=== PATIENT | female | born 1940 | race Caucasian/White ===

== ENCOUNTER 2018-11-02 12:18 | Day surgery (SDC) | payer OTHER ==
--- NOTE | 2018-10-28 12:30 | RAD REPORT ---
EXAM DESCRIPTION: Ugo Maxwell (2 Views)10/28/2018 12:23 pm CLINICAL HISTORY: Preop for eye surgery COMPARISON: None FINDINGS: Lungs are moderately hyperaerated The lungs appear clear of acute infiltrate. The heart is normal size IMPRESSION: Hyperaerated lungs without visualization of an acute abnormality
[2018-10-28 13:35] LABS: Absolute Lymphocytes (CBC) 1.4 K/uL (0.7-4.9); Basophils % 0.5 % (0-1.3); Eosinophils % 1.7 % (0-4.4); Hematocrit 38.5 % (36.0-45.0); Lymphocytes % 21.3 % (15.3-44.8); MPV 9.7 fL (7.6-11.3); Monocytes % 6.1 % (3.3-12.3)
[2018-10-28 13:46] LABS: Potassium 3.8 mmol/L (3.5-5.1)
--- NOTE | 2018-10-29 07:38 | EKG ---
Test Date: 2018-10-28 Test Time: 12:35:34 [place]: ELSA MEASUREMENT RESULTS: Intervals: Rate: 60 SD: 114 QRSD: 78 QT: 434 QTc: 434 [place]: P: 49 SD: 114 QRS: 47 T: 64 INTERPRETIVE STATEMENTS: Normal sinus rhythm Normal ECG No previous ECG available for comparison Electronically Signed On 10-29-18 07:36:06 CDT by Valdo Wong
--- OUTSIDE RECORDS SUMMARY | 2018-11-02 12:28 | XMS REPORT | Clinical Summary ---
:1940 Author Organization [facility] Address [address] [place] [address] Care Team Providers Name Role Phone Cong Claudio MD Primary Care Provider Allergies Active Allergy Reactions Severity Noted Date Comments Penicillins 01/24/2015 Rosacea flare up Medications Medication Sig Dispensed Refills Start End Status Date Date estrogens, conjugated, Take 1.25 mg by 0 Active (PREMARIN) 1.25 MG mouth daily. tablet aspirin 81 MG EC Take 81 mg by 0 Active tablet mouth daily. RESTASIS 0.05 % Place 1 drop 0 Active ophthalmic emulsion into both eyes 7 daily . metroNIDAZOLE Apply 1 0 Active (METROCREAM) 0.75 % application 7 cream topically as needed . cetirizine-pseudoephed Take 1 tablet 0 Active rine (ZYRTEC-D) 5 by mouth 2 9 020 mg-120 mg per (two) times tabletIndications: daily. Seasonal allergic rhinitis due to pollen levothyroxine Take 1 tablet 90 tablet 0 Active (SYNTHROID, (75 mcg total) 9 LEVOTHROID) 75 MCG by mouth every tabletIndications: morning ON AN Hypothyroidism, EMPTY STOMACH. unspecified type, Encounter for long-term current use of medication methylPREDNISolone Take 1 tablet 21 tablet 0 Active (MEDROL DOSEPACK) 4 mg (4 mg total) by 9 020 tabletIndications: mouth daily Seasonal allergic follow package rhinitis due to pollen directions. cetirizine-pseudoephed Take 1 tablet 0 Active rine (ZYRTEC-D) 5 by mouth 2 9 020 mg-120 mg per (two) times tabletIndications: daily. Seasonal allergic rhinitis due to pollen levothyroxine TAKE 1 TABLET 30 tablet 2 Active (SYNTHROID, BY MOUTH EVERY 9 LEVOTHROID) 75 MCG MORNING ON AN tabletIndications: EMPTY STOMACH Hypothyroidism, unspecified type, Encounter for long-term current use of medication cetirizine-pseudoephed Take 1 tablet 0 rine (ZYRTEC-D) 5 by mouth 2 8 019 mg-120 mg per tablet (two) times daily. levothyroxine TAKE 1 30 tablet 2 Discontinued (SYNTHROID, TABLET(75 MCG) 8 018 LEVOTHROID) 75 MCG BY MOUTH EVERY tabletIndications: MORNING ON AN Hypothyroidism, EMPTY STOMACH unspecified type, Encounter for long-term current use of medication levothyroxine Take 1 tablet 90 tablet 0 Discontinued (SYNTHROID, (75 mcg total) 8 019 LEVOTHROID) 75 MCG by mouth Every tabletIndications: morning on an Hypothyroidism, empty stomach. unspecified type, Encounter for long-term current use of medication levothyroxine TAKE 1 TABLET 180 tablet 0 Discontinued (SYNTHROID, BY MOUTH EVERY 8 019 LEVOTHROID) 75 MCG MORNING ON AN tabletIndications: EMPTY Hypothyroidism, STOMACH(PATIENT unspecified type, MUST COME IN Encounter for FOR FASTING LAB long-term current use AND APPT BEFORE of medication REFILL RUNS OUT) azithromycin Take 2 tablets 6 tablet 0 (ZITHROMAX Z-ALONDRA) 250 (500 mg) on 9 019 MG tabletIndications: Day 1, Seasonal allergic followed by 1 rhinitis due to pollen tablet (250 mg) once daily on Days 2 through 5.. levothyroxine Take 1 tablet 30 tablet 0 Discontinued (SYNTHROID, (75 mcg total) 9 019 LEVOTHROID) 75 MCG by mouth Every tabletIndications: morning on an Hypothyroidism, empty stomach. unspecified type, Encounter for long-term current use of medication Hospital, Clinic, or Other Ordered Dose Route Frequency Start Date End Date Status Facility Administered Medication triamcinolone acetonide 40 mg IM Once 06/02/2018 06/02/2018 Ended (KENALOG-40) injection 40 mgIndications: Seasonal allergic rhinitis due to pollen triamcinolone acetonide 40 mg IM Once 07/15/2018 07/15/2018 Ended (KENALOG-40) injection 40 mgIndications: Seasonal allergic rhinitis due to pollen Active Problems Problem Noted Date Encounter for long-term current use of medication 01/09/2016 Hypercholesteremia 01/09/2016 Hypothyroid 01/09/2016 Vitamin D deficiency 01/09/2016 S/P hip replacement, right 09/27/2015 Rosacea 09/27/2015 Encounters Date Type Specialty Care Team Description 09/03/2018 Refill Family Medicine Trish Ulloa, Hypothyroidism, unspecified type; [employer] Encounter for long-term current use of medication 07/15/2018 Office Visit Family Medicine Cong Claudio, Seasonal allergic MD rhinitis due to pollen (Primary Dx) 07/13/2018 Refill Family Trish Gonzalez, Hypothyroidism, unspecified type; [employer] Encounter for long-term current use of medication 07/11/2018 Refill Family Medicine Cong Claudio, Hypothyroidism, unspecified type; MD Encounter for long-term current use of medication 06/02/2018 Office Visit Family Cong Arreola, Hypothyroidism, unspecified type (Primary Dx); MD Encounter for long-term current use of medication; Hypercholesteremia; Seasonal allergic rhinitis due to pollen 12/16/2017 Refill Family Cong Arreola, Hypothyroidism, unspecified type; MD Encounter for long-term current use of medication 11/10/2017 Refill Family Cong Arreola, Hypothyroidism, unspecified type; MD Encounter for long-term current use of medication after 11/01/2017 Immunizations Name Dates Previously Given Next Due IPV 12/27/2014 Td 08/11/2015 Family History Relation Name Status Comments Father Mother Social History Tobacco Use Types Packs/Day Years Used Date Never Smoker Smokeless Tobacco: Never Used Alcohol Use Drinks/Week oz/Week Comments Yes 1 Glasses of wine 0.6 light Sex Assigned at Date Recorded Not on file Job Start Date Occupation Industry Not on file Not on file Not on file Travel History Travel Start Travel End No recent travel history available. Last Filed Vital Signs Vital Sign Reading Time Taken Blood Pressure 126/74 07/15/2018 11:55 AM CDT Pulse 84 07/15/2018 11:55 AM CDT Temperature 36.6 C (97.9 F) 07/15/2018 11:55 AM CDT Respiratory Rate 16 07/15/2018 11:55 AM CDT Oxygen Saturation 96% 07/15/2018 11:55 AM CDT Inhaled Oxygen Concentration - - Weight 47.8 kg (105 lb 6.4 oz) 07/15/2018 11:55 AM CDT Height 162.6 cm (5' 4") 07/15/2018 11:55 AM CDT Body Mass Index 18.09 07/15/2018 11:55 AM CDT Plan of Treatment Not on file Results Not on fileafter 11/01/2017 Insurance Payer Benefit Plan / Group Subscriber ID Type Phone Address MEDICARE MEDICARE A B xxxxxxxxxxx Medicare
[2018-11-02] MEDS ORDERED: BALANCED SALT IRRIG PLAIN 500 ML BTL IRR ONE ×2 (12:54→13:55)
[2018-11-02] MEDS ORDERED: NS 0.9% VIAL 0 ML ONE (12:54)
[2018-11-02] MEDS ORDERED: EPINEPHRINE/PF 1 MG/ML AMP ONE ×2 (12:54→13:55)
[2018-11-02] MEDS ORDERED: BUPIVACAINE 0.25% PF 10 ML VIAL ONE (13:08)
[2018-11-02] MEDS ORDERED: TETRACAINE HCL 0.5% 4ML OPTH ONE (13:08)
[2018-11-02] MEDS ORDERED: LIDOCAINE 2% MPF 5 ML VIAL ONE ×2 (13:08→14:12)
[2018-11-02] MEDS ORDERED: NA CHLORIDE 0.9% 500 ML ONE (13:09)
[2018-11-02] MEDS ORDERED: DUOVISC 1 KIT OPTH ONE (13:37)
[2018-11-02] MEDS: CYCLOPENTOLATE 1% OPTH 2 ML ONE ×3 (13:50→14:00)
[2018-11-02] MEDS: PHENYLEPHRINE 10% OPTH 5ML ONE ×3 (13:50→14:00)
[2018-11-02] MEDS ORDERED: NS 0.9% VIAL 10 ML ONE (13:55)
[2018-11-02] MEDS ORDERED: FENTANYL CITR 100 MCG/2 ML ONE (14:12)
[2018-11-02] MEDS ORDERED: PROPOFOL 200 MG/20 ML VIAL IV ONE (14:12)
[2018-11-02] MEDS ORDERED: MIDAZOLAM HCL 2 MG/2 ML INJ ONE (14:13)
[2018-11-02] MEDS: MOXIFLOXACIN HCL 10 DROPS/ML **OR USE OPTH ONE ×2 (14:55→15:11)
[2018-11-02] MEDS ORDERED: dexAMETHasone 10 MG/ML VIAL ONE (15:07)
[2018-11-02] MEDS ORDERED: GLYCOPYRROLATE 0.2 MG/ML SYR ONE (15:14)
--- NOTE | 2018-11-02 15:18 | P.BOP ---
Preoperative diagnosis: Nuclear sclerotic and posterior subcapsular cataract OS Postoperative diagnosis: Same Primary procedure: Phacoemulsification with IOL OS Estimated blood loss: None Anesthesia: General Complications: None Implants: ZCB00 +23.5 Transferred to: Recovery Room Condition: Good
[2018-11-02] MEDS ORDERED: MORPHINE 4 MG/ML SYR ONE (15:54)
--- NOTE | 2018-11-03 01:45 | OP ---
Date of Procedure: 11/02/2018 Surgeon: Yissel Watson MD Anesthesiologist: Addison Elder CRNA and Cong Sharma MD Preoperative Diagnosis: Nuclear sclerotic cataract and posterior subcapsular cataract, left eye. Operation Performed: Phacoemulsification with intraocular lens implant, left eye. Anesthesia: General. Complications: None. Description Of Procedure: In the operating room the patient was prepped and draped in the usual ster ile fashion for ophthalmic surgery. A lid speculum was placed in the left eye. Two paracentesis sit es were made superiorly and inferiorly in the limbal cornea. Viscoat was placed in the anterior leatha johann and a crescent blade was used to make a corneal groove and tunnel, and a keratome was used to ent er the anterior chamber. Provisc was placed in the anterior chamber and a 360 degree capsulotomy was performed with a cystitome. The lens was hydrodissected with BSS and rotated freely. The lens was removed with a stop and chop technique. 17.85 phaco CDE was used to remove the lens. Residual germaine x was removed with the irrigation and aspiration. Provisc was placed in the capsular bag. A ZCB00 + 23.5 lens was placed in the capsular bag without complications. Irrigation and aspiration were used to remove residual viscoelastic. The paracentesis sites were hydrated with BSS. The wound and parac entesis sites were inspected and found to be watertight. Vigamox 0.07 cc was placed intracamerally a t the end of the procedure. The eye was irrigated with balanced salt solution. The eye was patched with a soft cotton patch and Jose metal shield. The patient was returned to day surgery in good condition. Comments: The patient was performed under general anesthesia due to extreme anxiety. Discharge Instructions: Ms. Tinsley is discharged to home in good condition and is to follow up with Jose Watson in the morning. SANTIAGO/LACEY Voice ID: [id number] Report ID: [id number]
== END 2018-11-02 16:52 | disposition home or self-care (01) ==
LOC: OR 12:18
PROVIDERS: ATTEND Ophthalmology Retina Specialist
PROC: 08RK3JZ Replacement of Left Lens with Synthetic Substitute, Percutaneous Approach (ICD-10-PCS; principal; 2018-11-02 13:15)
DX: H25.12 Age-related nuclear cataract, left eye (principal); H25.042 Posterior subcapsular polar age-related cataract, left eye; E07.9 Disorder of thyroid, unspecified; Z88.0 Allergy status to penicillin
CPT/HCPCS: 93005; 85025; 80048; 36415; 71046; 66984; J2704; J0171; J3010; J1100; J2250